=== PATIENT | female | born 1970 | race Caucasian/White ===

== ENCOUNTER → 2021-05-27 | Outpatient (CLI) | payer OTHER ==
[~2021-05-27] MED LIST: AZITHROMYCIN 2250 MG PO; CEFUROXIME500 MG PO; IBUPROFEN 800800 MG PO; PROMETHAZINE-C120 ML PO; TESSALON PERLE100 MG PO; TYLENOL325 MG PO; ZOFRAN ODT4 MG PO
== END ==
LOC: BC 05-01 13:25
PROVIDERS: ATTEND Obstetrics & Gynecology
DX: Z12.31 Encounter for screening mammogram for malignant neoplasm of breast (principal)

== ENCOUNTER → 2021-05-27 | Outpatient (CLI) | payer OTHER | LOC: CAT | PROVIDERS: ATTEND Obstetrics & Gynecology | DX: Z13.6 Encounter for screening for cardiovascular disorders (principal); I25.10 Atherosclerotic heart disease of native coronary artery without angina pectoris; E78.00 Pure hypercholesterolemia, unspecified ==